=== PATIENT | male | born 1970 | race Caucasian/White ===

== ENCOUNTER 2020-07-29 21:39 | Emergency (ER) | payer MEDICAID ==
[~2020-07-29] VITALS: Ht 172.7 cm; Wt 74.8 kg
--- NOTE | 2020-07-29 22:51 | NUR ---
PT AAOX4. AMBULATORY, BIBSELF C/O L SIDED CP 6/10, SHARP, NON- RADIATING, + DIZZINESS, +SOB. PT PLACED IN BED 7 ON SCHOOL DIRECTOR AND PULSE OX. VSS. NO ACUTE DISTRESS NOTED. AWAITING ER MD FOR EVAL AND ORDERS.
[2020-07-29] MEDS ORDERED: IV NS 0.9% 1,000 ML IV ONE (23:00)
[2020-07-29] MEDS ORDERED: DEXAMETHASONE SOD PHOSPHATE 10 MG/ML VIAL IV ONE (23:00)
[2020-07-29] MEDS ORDERED: DEXAMETHASONE SOD PHOSPHATE 10 MG/ML VIAL ONE (23:09)
--- NOTE | 2020-07-29 23:16 | NUR ---
BLOOD COLLECTED AND SENT TO THE LAB.
[2020-07-29 23:28] LABS: BASOPHILS # (AUTO) 0.1 /CMM (0.0-0.2); BASOPHILS % (AUTO) 1.1 % (0.0-2.0); EOSINOPHILS % (AUTO) 0.7 % (0.0-6.0); HEMATOCRIT 40 % (39-51); HEMOGLOBIN 13.6 g/dL (13.5-17.5); LYMPHOCYTES # (AUTO) 1.1 /CMM (0.8-4.8); MEAN CORPUSCULAR HGB CONC 34 g/dl (31.0-36.0); MEAN CORPUSCULAR VOLUME 87 fL (80-96); MONOCYTES # (AUTO) 0.5 /CMM (0.1-1.30); MONOCYTES % (AUTO) 11.1 % (2.0-12.0); NEUTROPHILS % (AUTO) 63.1 % (43.0-81.0); PLATELET COUNT (AUTO) 218 /CMM (150-450); RED BLOOD CELL COUNT(AUTO) 4.65 MIL/uL (4.5-6.0); WHITE BLOOD COUNT (AUTO) 4.7 K/uL (4.3-11.0)
[2020-07-29 23:48] LABS: ALANINE AMINOTRANSFERASE 21 U/L (12-78); ALBUMIN 4.1 g/dL (3.4-5.0); ALKALINE PHOSPHATASE 48 U/L (46-116); ASPARTATE AMINOTRANSFERASE 29 U/L (15-37); B-TYPE NATRIURETIC PEPTIDE 12 PG/ML (0-125); BILIRUBIN,TOTAL 0.3 mg/dL (0.2-1.0); CARBON DIOXIDE 31 mmol/L (21-32); CHLORIDE 99 mmol/L (98-107); GLUCOSE 108 mg/dL (74-106); SODIUM SERUM 137 mmol/L (136-145); TOTAL PROTEIN, SERUM 7.7 g/dL (6.4-8.2); UREA NITROGEN, BLOOD 11 mg/dL (7-18)
[2020-07-30] MEDS ORDERED: METH4TAB3 PO (00:42)
[2020-07-30] MEDS ORDERED: ALBU8.5H8 INH (00:42)
[2020-07-30 01:10] VITALS: BP 128/71
--- NOTE | 2020-07-30 01:10 | NUR ---
IV removed. Catheter intact and site benign. Pressure and 4x4 applied to site. No bleeding noted. Patient discharged to home in stable condition. Written and verbal after care instructions given. Patient verbalizes understanding of instruction and RX. vss.
== END 2020-07-30 01:10 | disposition home or self-care (01) ==
LOC: ER 21:47
DX: U07.1 COVID-19 (principal); R42 Dizziness and giddiness
CPT/HCPCS: 36415; 71045; 80053; 83605; 83880; 84145; 84484; 85025; 87040 ×2; 96374; 99284; C9803; J1100; U0003

== ENCOUNTER 2020-11-10 14:34 | Emergency (ER) | payer MEDICAID ==
[~2020-11-10] VITALS: Ht 175.3 cm; Wt 74.8 kg
[~2020-11-10 14:34] MED LIST: ALBU8.5H8 INH; METH4TAB3 PO
--- NOTE | 2020-11-10 14:58 | NUR ---
TO ER BED 3, NUMBNESS AND TINGLING OF EXTREMITIES, PLACED ON MONITOR AND POX, SALINE LOCK ESTABLISHED
[2020-11-10 15:25] LABS: BASOPHILS # (AUTO) 0.1 K/uL (0.0-0.2); BASOPHILS % (AUTO) 0.8 % (0.0-2.0); HEMATOCRIT 39 % (39-51); HEMOGLOBIN 13.1 g/dL (13.5-17.5); LYMPHOCYTES # (AUTO) 1.8 K/uL (0.8-4.8); LYMPHOCYTES % (AUTO) 28.4 % (20.0-44.0); MEAN CORPUSCULAR HGB CONC 33 g/dl (31.0-36.0); MEAN CORPUSCULAR VOLUME 86 fL (80-96); MONOCYTES # (AUTO) 0.5 K/uL (0.1-1.30); MONOCYTES % (AUTO) 7.6 % (2.0-12.0); NEUTROPHILS # (AUTO) 3.9 K/uL (1.8-8.9); NEUTROPHILS % (AUTO) 62.2 % (43.0-81.0); PLATELET COUNT (AUTO) 269 K/uL (150-450); RED BLOOD CELL COUNT(AUTO) 4.56 MIL/uL (4.5-6.0); WHITE BLOOD COUNT (AUTO) 6.2 K/uL (4.3-11.0)
[2020-11-10 15:46] LABS: CALCIUM, SERUM 8.9 mg/dL (8.5-10.1); CREATININE 1.2 mg/dL (0.6-1.3); POTASSIUM 3.4 mmol/L (3.5-5.1)
[2020-11-10 15:52] LABS: BILIRUBIN,DIRECT 0.1 mg/dL (0.0-0.2); BILIRUBIN,TOTAL 0.6 mg/dL (0.2-1.0); TOTAL PROTEIN, SERUM 7.7 g/dL (6.4-8.2)
[2020-11-10 16:00] VITALS: BP 113/69
[2020-11-10] MEDS ORDERED: POTASSIUM CHLORIDE 20 MEQ TAB.PRT.SR PO ONE ×2 (16:00→16:04)
--- NOTE | 2020-11-10 16:32 | NUR ---
IV removed. Catheter intact and site benign. Pressure and 4x4 applied to site. No bleeding noted.Patient discharged to home in stable condition. Written and verbal after care instructions given. Patient verbalizes understanding of instruction.
== END 2020-11-10 16:31 | disposition home or self-care (01) ==
LOC: ER 14:55
DX: M54.12 Radiculopathy, cervical region (principal); M54.16 Radiculopathy, lumbar region; E87.6 Hypokalemia; D64.9 Anemia, unspecified; Z90.89 Acquired absence of other organs; Z79.899 Other long term (current) drug therapy
CPT/HCPCS: 36415; 80048-TC; 80076-TC; 85025-TC

== ENCOUNTER 2020-11-16 16:45 | Emergency (ER) | payer MEDICAID ==
[~2020-11-16] VITALS: Ht 175.3 cm; Wt 74.8 kg
--- NOTE | 2020-11-16 18:36 | NUR ---
TO ER BED 2,SEEN BY PITER TRIPP WITH ORDERS
[2020-11-16 18:52] LABS: BASOPHILS # (AUTO) 0.1 K/uL (0.0-0.2); EOSINOPHILS % (AUTO) 1.7 % (0.0-6.0); HEMATOCRIT 40 % (39-51); HEMOGLOBIN 13.1 g/dL (13.5-17.5); LYMPHOCYTES # (AUTO) 2.1 K/uL (0.8-4.8); MEAN CORPUSCULAR HGB CONC 33 g/dl (31.0-36.0); MEAN CORPUSCULAR VOLUME 87 fL (80-96); MONOCYTES # (AUTO) 0.6 K/uL (0.1-1.30); NEUTROPHILS # (AUTO) 3.7 K/uL (1.8-8.9); NEUTROPHILS % (AUTO) 56.3 % (43.0-81.0); PLATELET COUNT (AUTO) 291 K/uL (150-450); RED BLOOD CELL COUNT(AUTO) 4.57 MIL/uL (4.5-6.0); WHITE BLOOD COUNT (AUTO) 6.5 K/uL (4.3-11.0)
[2020-11-16 18:59] LABS: CALCIUM, SERUM 8.9 mg/dL (8.5-10.1); CARBON DIOXIDE 27 mmol/L (21-32); CHLORIDE 104 mmol/L (98-107); CREATININE 1.1 mg/dL (0.6-1.3); GLUCOSE 102 mg/dL (74-106); POTASSIUM 3.6 mmol/L (3.5-5.1); SODIUM SERUM 141 mmol/L (136-145); UREA NITROGEN, BLOOD 13 mg/dL (7-18)
--- NOTE | 2020-11-16 19:57 | NUR ---
RECEIVED REPORT FROM DAY SHIFT NURSE, PATIENT IN BED RESTING. PATIENT VSS, PATIENT CONNECTED TO MONITOR.
--- NOTE | 2020-11-16 22:47 | NUR ---
Patient discharged to home in stable condition. Written and verbal after care instructions given. Patient verbalizes understanding of instruction.
[2020-11-16 22:49] VITALS: BP 124/71
== END 2020-11-16 22:49 | disposition home or self-care (01) ==
LOC: ER 16:49
DX: R07.89 Other chest pain (principal); Z79.899 Other long term (current) drug therapy
CPT/HCPCS: 36415; 71045-TC; 80048-TC; 84484-TC; 85025-TC

== ENCOUNTER 2021-04-27 17:46 | Emergency (ER) | payer MEDICAID ==
[~2021-04-27] VITALS: Ht 175.3 cm; Wt 74.8 kg
--- NOTE | 2021-04-27 18:02 | NUR ---
BIBS C/O HEADACHE 10/01, DIZZINESS AND RIGHT FINGERS TINGLING STARTED LAST MONDAY WORST TODAY. RESPIRATION REGULAR AND UNLABORED. ATTACHED TO THE MONITOR. WILL CONTINUE TO MONITOR THE PATIENT.
--- NOTE | 2021-04-27 18:37 | NUR ---
PT RETURNED TO ER BED [address] [facility]IA [facility]
[2021-04-27 19:46] LABS: CALCIUM, SERUM 8.9 mg/dL (8.5-10.1); POTASSIUM 3.4 mmol/L (3.5-5.1)
[2021-04-27 19:48] LABS: BASOPHILS # (AUTO) 0.1 K/uL (0.0-0.2); BASOPHILS % (AUTO) 1.2 % (0.0-2.0); EOSINOPHILS % (AUTO) 1.9 % (0.0-6.0); HEMATOCRIT 43 % (39-51); HEMOGLOBIN 14.5 g/dL (13.5-17.5); LYMPHOCYTES # (AUTO) 1.8 K/uL (0.8-4.8); LYMPHOCYTES % (AUTO) 34.9 % (20.0-44.0); MEAN CORPUSCULAR HGB CONC 33 g/dl (31.0-36.0); MEAN CORPUSCULAR VOLUME 87 fL (80-96); MONOCYTES # (AUTO) 0.4 K/uL (0.1-1.30); MONOCYTES % (AUTO) 8.5 % (2.0-12.0); NEUTROPHILS # (AUTO) 2.7 K/uL (1.8-8.9); NEUTROPHILS % (AUTO) 53.5 % (43.0-81.0); PLATELET COUNT (AUTO) 255 K/uL (150-450); RED BLOOD CELL COUNT(AUTO) 4.98 MIL/uL (4.5-6.0); WHITE BLOOD COUNT (AUTO) 5.1 K/uL (4.3-11.0)
[2021-04-27] MEDS ORDERED: NAPR500T6 PO (20:10)
[2021-04-27] MEDS: POTASSIUM CHLORIDE 20 MEQ TAB.PRT.SR PO ONE (20:15)
[2021-04-27] MEDS: KETOROLAC TROMETHAMINE INJ 60 MG/2 ML VIAL IM ONE (20:15)
[2021-04-27] MEDS ORDERED: KETOROLAC TROMETHAMINE INJ 30 MG/ML VIAL ONE (20:16)
[2021-04-27] MEDS ORDERED: POTASSIUM CHLORIDE 20 MEQ TAB.PRT.SR PO ONE (20:16)
--- NOTE | 2021-04-27 20:30 | NUR ---
Patient discharged to home in stable condition. Written and verbal after care instructions given. Patient verbalizes understanding of instruction.Patient is awake and alert to self, day, and place. PT ambulatory with a steady gait
[2021-04-27 21:26] VITALS: BP 134/92
== END 2021-04-27 21:27 | disposition home or self-care (01) ==
LOC: ER 17:47
DX: G44.219 Episodic tension-type headache, not intractable (principal); M54.12 Radiculopathy, cervical region; H93.13 Tinnitus, bilateral; F41.9 Anxiety disorder, unspecified; M50.30 Other cervical disc degeneration, unspecified cervical region; Z86.16 Personal history of COVID-19; Z79.1 Long term (current) use of non-steroidal anti-inflammatories (NSAID); Z79.52 Long term (current) use of systemic steroids; Z79.51 Long term (current) use of inhaled steroids
CPT/HCPCS: 36415; 70450; 80048; 85025; 96372; 99284; J1885

== ENCOUNTER 2021-05-14 02:25 | Emergency (ER) | payer MEDICAID ==
[~2021-05-14] VITALS: Ht 175.3 cm; Wt 74.8 kg
[~2021-05-14 02:25] MED LIST changes: +NAPR500T6 PO
--- NOTE | 2021-05-14 02:39 | NUR ---
PT BIBS C/O TACHYCARDIA SINCE 2AM WITH NAUSEA AND FINGER NUMBNESS. PATIENT ALERT AND ORIENTED X3. AMBULATORY WITH NON LABORED BREATHING. PLACED PT IN BED 03 ON MONITOR AND POX.
--- NOTE | 2021-05-14 02:40 | NUR ---
EMT @ BEDSIDE FOR EKG
[2021-05-14 03:46] VITALS: BP 145/90
--- NOTE | 2021-05-14 03:46 | NUR ---
Patient discharged to home in stable condition. Written and verbal after care instructions given. Patient verbalizes understanding of instruction.
== END 2021-05-14 03:48 | disposition home or self-care (01) ==
LOC: ER 02:36
DX: F41.9 Anxiety disorder, unspecified (principal); Z79.899 Other long term (current) drug therapy

== ENCOUNTER 2022-04-14 01:34 | Emergency (ER) | payer MEDICAID ==
[~2022-04-14] VITALS: Ht 172.7 cm; Wt 73.9 kg
[2022-04-14 02:08] VITALS: BP 136/71
--- NOTE | 2022-04-14 02:20 | NUR ---
BIBSELF C/O FEELING SHARP PAIN ON RIGHT SIDE OF FACE AND NUMBNESS ON BLE THAT LAST FOR 15-12SECONDS. PT AOX4. ABLE TO MOVE ALL EXTREMITIES WITHOUT DIFFICULTY.
--- NOTE | 2022-04-14 02:21 | NUR ---
[facility]
--- NOTE | 2022-04-14 05:06 | NUR ---
PT DC TO HOME, DC INSTRUCTIONS GIVEN, VERBALIZES UNDERSTANDING, PT DENIES ANY PAIN OR NUMBNESS ANYMORE
== END 2022-04-14 05:06 | disposition home or self-care (01) ==
LOC: ER 01:36
DX: G44.219 Episodic tension-type headache, not intractable (principal); M54.12 Radiculopathy, cervical region; Z86.16 Personal history of COVID-19
CPT/HCPCS: 70450-TC

== ENCOUNTER 2022-09-02 01:12 | Emergency (ER) | payer MEDICAID ==
[~2022-09-02] VITALS: Ht 175.3 cm; Wt 73.5 kg
[2022-09-02 01:52] VITALS: BP 135/75
[2022-09-02] MEDS ORDERED: IBUPROFEN 400 MG TABLET PO ONE (02:00)
[2022-09-02] MEDS ORDERED: IBUPROFEN 400 MG TABLET ONE (02:02)
--- NOTE | 2022-09-02 02:09 | NUR ---
Patient discharged to home in stable condition. Written and verbal after care instructions given. Patient verbalizes understanding of instruction.
== END 2022-09-02 02:09 | disposition home or self-care (01) ==
LOC: ER 01:14
DX: G44.219 Episodic tension-type headache, not intractable (principal); M54.12 Radiculopathy, cervical region; Z86.16 Personal history of COVID-19

== ENCOUNTER 2024-07-05 19:27 | Emergency (ER) | payer MEDICAID ==
[~2024-07-05] VITALS: Ht 175.3 cm; Wt 74.8 kg
[2024-07-05 20:20] LABS: BASOPHILS % (AUTO) 0.6 % (0.0-2.0); EOSINOPHILS # (AUTO) 0.2 K/uL (0.0-0.7); EOSINOPHILS % (AUTO) 3.1 % (0.0-6.0); HEMATOCRIT 41 % (39-51); HEMOGLOBIN 13.7 g/dL (13.5-17.5); LYMPHOCYTES # (AUTO) 2.2 K/uL (0.8-4.8); LYMPHOCYTES % (AUTO) 36.2 % (20.0-44.0); MEAN CORPUSCULAR HEMOGLOBIN 29 PG (26.0-33.0); MEAN CORPUSCULAR HGB CONC 34 g/dl (31.0-36.0); MEAN CORPUSCULAR VOLUME 85 fL (80-96); MONOCYTES # (AUTO) 0.6 K/uL (0.1-1.30); MONOCYTES % (AUTO) 9.6 % (2.0-12.0); NEUTROPHILS % (AUTO) 50.5 % (43.0-81.0); PLATELET COUNT (AUTO) 297 K/uL (150-450); RED BLOOD CELL COUNT(AUTO) 4.81 MIL/uL (4.5-6.0); RED CELL DISTRIBUTION WIDTH 14.5 % (11.5-15.0)
[2024-07-05 20:26] LABS: CALCIUM, SERUM 9.5 mg/dL (8.5-10.1); CARBON DIOXIDE 32 mmol/L (21-32); CHLORIDE 102 mmol/L (98-107); GLUCOSE 108 mg/dL (74-106); POTASSIUM 3.9 mmol/L (3.5-5.1); SODIUM SERUM 142 mmol/L (136-145); UREA NITROGEN, BLOOD 13 mg/dL (7-18)
[2024-07-05 21:20] VITALS: BP 125/76; TEMP 98.1; O2SAT 100
== END 2024-07-05 21:20 | disposition home or self-care (01) ==
LOC: ER 19:31
DX: M54.12 Radiculopathy, cervical region (principal); R07.89 Other chest pain; Z20.822 Contact with and (suspected) exposure to COVID-19; Z79.899 Other long term (current) drug therapy
CPT/HCPCS: 36415; 71045-TC; 80048-TC; 84484-TC; 85025-TC